=== PATIENT | female | born 1975 | race Caucasian/White ===

== ENCOUNTER 2018-09-16 16:12 | Emergency (ER) | payer OTHER ==
[~2018-09-16] VITALS: Ht 152.4 cm; Wt 85.2 kg
[2018-09-16 16:13] VITALS: BP 170/87
[2018-09-16] MEDS ORDERED: IBUP80TA PO (16:19)
[2018-09-16] MEDS ORDERED: PLAQ200T4 PO (16:19)
[2018-09-16] MEDS ORDERED: ACETAMINOPHEN TAB 650MG DOSE (2X325MG) PO ONE (16:30)
--- NOTE | 2018-09-16 17:00 | REP ---
Right ankle four views History: Pain There is no acute fracture or dislocation. The joint space is normal in appearance. An osteophyte is present on the inferior calcaneus. Impression: There is no acute fracture or dislocation. Electronically Signed by Cody Pardo MD 09/16/2018 04:52 P
[2018-09-16] MEDS ORDERED: KETOROLAC TROMETHAMINE 10 MG TAB PO ONE (17:15)
== END 2018-09-16 17:20 | disposition home or self-care (01) ==
LOC: M ED 16:12
DX: S93.491A Sprain of other ligament of right ankle, initial encounter (principal); X50.1XXA Overexertion from prolonged static or awkward postures, initial encounter; Y92.89 Other specified places as the place of occurrence of the external cause; Y99.0 Civilian activity done for income or pay; Z88.2 Allergy status to sulfonamides; Z79.899 Other long term (current) drug therapy